=== PATIENT | female | born 1945 | race Caucasian/White ===

== ENCOUNTER 2024-03-07 10:21 | Inpatient (IN) | payer MEDICARE, OTHER ==
[~2024-03-07] VITALS: Ht 154.9 cm; Wt 66.8 kg
--- NOTE | 2024-03-07 11:34 | ED.PDOC ---
History of Present Illness HPI Comments 79F presents to the ER w/ prior Hx of DM which may associated to the c/c of UE. Pt reports on tripping over a block curb 1 week ago and was told to go to the ER so that they can check her DM level due from her having Sx on her left wrist tomorrow w/ Doctor Kira. SHx of cataract Sx xboth hands. Social Hx of quit tobacco use, occasional alcohol use, but denies substance use. Family Hx of DM. Denies chills, fever, N/V/D, SOB, CP or other associated symptom's, modifiers, or recent injuries or sick contact at this time. Chief Complaint: Upper Extremity Time Seen by MD: 11:15 Reviewed Notes: Nurses Notes, Medications, Allergies Allergies: Coded Allergies: Codeine (Verified Allergy, Unknown, 03/07/24) Erythromycin (Verified Allergy, Unknown, 03/07/24) Penicillins (Verified Allergy, Unknown, 03/07/24) Information Source: Patient Mode of Arrival: Ambulatory Severity: Moderate Timing: Days Duration: Since onset, Days Prehospital treatment: None Past Medical History PAST MEDICAL HISTORY: DM Surgical History (Other): cataract Sx on both hands DIESEL TECHNICIAN History: No Pertinent DIESEL TECHNICIAN History Family History Family History: Reviewed,noncontributory to illness, Family hx of DM Social History Smoker: Quit Greater Than 1 Year Alcohol: Occasionally Drugs: Denies Drug Use Lives In: Home Constitutional: reports: others (Scheduled Sx appointment tommorrow); denies: chills, diaphoresis, fatigue, fever, malaise, sweats, weakness EENTM: denies: blurred vision, double vision, ear bleeding, ear discharge, ear drainage, ear pain, ear ringing, eye pain, eye redness, hearing loss, mouth pain, mouth swelling, nasal discharge, nose bleeding, nose congestion, nose pain, photophobia, tearing, throat pain, throat swelling, voice changes, others Respiratory: denies: cough, hemoptysis, orthopnea, SOB at rest, shortness of breath, SOB with excertion, stridor, wheezing, others Cardiovascular: denies: chest pain, dizzy spells, diaphoresis, Dyspnea on exertion, edema, irregular heart beat, left arm pain, lightheadedness, palpitations, PND, syncope, others Gastrointestinal: denies: abdomen distended, abdominal pain, blood streaked bowels, constipated, diarrhea, dysphagia, difficulty swallowing, hematemesis, melena, nausea, poor appetite, poor fluid intake, rectal bleeding, rectal pain, vomiting, others Genitourinary: denies: abnormal vagina bleeding, burning, dyspareunia, dysuria, flank pain, frequency, hematuria, incontinence, pain, , vagina discharge, urgency, others Neurological: denies: dizziness, fainting, headache, left sided numbness, left sided weakness, numbness, paresthesia, pre-existing deficit, right sided numbness, right sided weakness, seizure, speech problems, tingling, tremors, weakness, others Musculoskeletal: denies: back pain, gout, joint pain, joint swelling, muscle pain, muscle stiffness, neck pain, others Integumetry: denies: bruises, change in color, change in hair/nails, dryness, laceration, lesions, lumps, rash, wounds, others Allergic/Immunocompromised: denies: Difficulty Healing, Frequent Infections, Hives, Itching, others Hematologic/Lymphatic: denies: anemia, blood clots, easy bleeding, easy bruising, swollen glands, others Endocrine: denies: excessive hunger, excessive sweating, excessive thirst, excessive urination, flushing, intolerance to cold, intolerance to heat, unexplained weight gain, unexplained weight loss, others Psychiatric: denies: anxiety, bipolar disorder, depression, hopeless, panic disorder, schizophrenia, sleepless, suicidal, others All Other Systems: Reviewed and Negative Physical Exam General Appearance: Mild Distress HEENT: Normal ENT Inspection, Pharynx Normal, TMs Normal Neck: Full Range of Motion, Non-Tender, Normal, Normal Inspection Respiratory: Chest Non-Tender, Lungs Clear, No Accessory Muscle Use, No Respiratory Distress, Normal Breath Sounds Cardiovascular: No Edema, No JVD, No Murmur, No Gallop, Normal Peripheral Pulses, Regular Rate/Rhythm Breast Exam: Deferred Gastrointestinal: No Organomegaly, Non Tender, No Pulsatile Mass, Normal Bowel Sounds, Soft Genitalia: Deferred Pelvic: Deferred Rectal: Deferred Extremities: No calf tenderness, Normal capillary refill, No pedal edema Musculoskeletal : Location: Left Extremity Location: Wrist Apperance: Tenderness: Moderate Neurologic: Alert, site identification specialist II-XII nml as Tested, No Motor Deficits, Normal Affect, Normal Mood, No Sensory Deficits Cerebellar Function: Normal Reflexes: Normal Skin: Dry, Normal Color, Warm Lymphatic: No Adenopathy Was a procedure done? Was a procedure done?: No Differential Dx Considerations may include: Fracture, strain, contusion X-Ray, Labs, Meds, VS Vital Signs Date Time Temp Pulse Resp B/P (MAP) Pulse Ox O2 Delivery O2 Flow Rate FiO2 03/07/24 10:44 98.7 98 16 195/83 (120) 96 Lab Test 03/07/24 11:30 Range/Units White Blood Count 5.4 4.4-10.8 10^3/uL Red Blood Count 5.04 4.0-5.20 10^6/uL Hemoglobin 13.7 12.2-16.2 g/dL Hematocrit 41.0 36.0-46.0 % Mean Corpuscular Volume 81.4 80.0-100.0 fL Mean Corpuscular Hemoglobin 27.1 L 28.0-32.0 pg Mean Corpuscular Hemoglobin Concent 33.3 32.0-36.0 g/dL Red Cell Distribution Width 13.9 11.8-14.3 % Platelet Count 219 140-450 10^3/uL Mean Platelet Volume 7.6 6.9-10.8 fL Neutrophils (%) (Auto) 61.1 37.0-80.0 % Lymphocytes (%) (Auto) 25.3 10.0-50.0 % Monocytes (%) (Auto) 8.3 0.0-12.0 % Eosinophils (%) (Auto) 3.3 0.0-7.0 % Basophils (%) (Auto) 2.0 0.0-2.0 % Neutrophils # (Auto) 3.3 1.6-8.6 10 ^3/uL Lymphocytes # (Auto) 1.4 0.4-5.4 10 ^3/uL Monocytes # (Auto) 0.4 0-1.3 10 ^3/uL Eosinophils # (Auto) 0.2 0-0.8 10 ^3/uL Basophils # (Auto) 0.1 0-0.2 10 ^3/uL Nucleated Red Blood Cells 0.3 % Prothrombin Time 11.4 9.3-11.8 sec Prothrombin Time INR 1.08 0.9-1.15 Activated Partial Thromboplast Time 28.4 24.5-34.5 SEC Sodium Level 141 136-145 mmol/L Potassium Level 3.9 3.5-5.1 mmol/L Chloride Level 104 98-107 mmol/L Carbon Dioxide Level 30 20-31 mmol/L Anion Gap 7 5-15 Blood Urea Nitrogen 19 9-23 mg/dL Creatinine 0.84 0.550-1.02 mg/dL Glomerular Filtration Rate Calc 72 >90 mL/min BUN/Creatinine Ratio 22.6 H 10.0-20.0 Serum Glucose 208 H 74-106 mg/dL Calcium Level 10.5 H 8.7-10.4 mg/dL Total Bilirubin 0.6 0.2-1.0 mg/dL Aspartate Amino Transferase (AST) 23 13-40 U/L Alanine Aminotransferase (ALT) 18 7-40 U/L Alkaline Phosphatase 100 46-116 U/L Total Protein 7.3 5.7-8.2 g/dL Albumin 4.5 3.2-4.8 g/dL The patient's CBC and chemistry panel are within normal limits except for hyperglycemia at 208 An IV Hep-Lock was established We consulted with the orthopedic surgeon The patient was being admitted at this time The diagnosis is left wrist fracture. We will manage the patient's pain with morphine and Zofran The patient was being admitted at this time. The patient will be having surgery tomorrow per the orthopedic surgeon Images Reviewed?: Images reviewed and evaluated by me Time of 1ST Reevaluation: 11:45 Reevaluation 1ST: Unchanged Patient Education/Counseling: Diagnosis, Treatment, Prognosis Family Education/Counseling: No Family Present Departure 1 Departure Time of Disposition: 14:10 Impression: Primary Impression: Left wrist fracture Qualified Codes: S62.102A - Fracture of unspecified carpal bone, left wrist, initial encounter for closed fracture Disposition: ADMITTED INPATIENT Admit to: Med Surg Condition: Fair Critical Care Note Critical Care Time?: No Stability Stability form required: No Heart Score Heart Score: Heart Score Response (Comments) Value History N/A 0 EKG N/A 0 Age N/A 0 Risk Factors N/A 0 Troponin N/A 0 Total 0 I personally scribed for JANET SAHNI MD ([email or web address]) on 03/07/24 at 11:34. Electronically submitted by Delbert Ortiz ([email or web address]). JANET SAHNI MD Mar 07, 2024 11:34
[2024-03-07 11:47] LABS: Basophils # (auto) 0.1 10 ^3/uL (0-0.2); Eosinophils # (auto) 0.2 10 ^3/uL (0-0.8); Eosinophils % (auto) 3.3 % (0.0-7.0); Hemoglobin 13.7 g/dL (12.2-16.2); Lymphocytes # (auto) 1.4 10 ^3/uL (0.4-5.4); Lymphocytes % (auto) 25.3 % (10.0-50.0); Mean Corpuscular Hemoglobin 27.1 pg (28.0-32.0); Mean Corpuscular Hgb Conc. 33.3 g/dL (32.0-36.0); Mean Corpuscular Volume 81.4 fL (80.0-100.0); Monocytes # (auto) 0.4 10 ^3/uL (0-1.3); Monocytes % (auto) 8.3 % (0.0-12.0); Neutrophils # (auto) 3.3 10 ^3/uL (1.6-8.6); Neutrophils % (auto) 61.1 % (37.0-80.0); Nucleated Red Blood Cells % 0.3 %; Platelet Count (auto) 219 10^3/uL (140-450); Red Blood Cells 5.04 10^6/uL (4.0-5.20); Red Cell Distribution Width 13.9 % (11.8-14.3); White Blood Cell 5.4 10^3/uL (4.4-10.8)
--- NOTE | 2024-03-07 11:58 | DVH ---
CLINICAL INFORMATION: 79 years old, Female; pre op. Distal radius fracture based on prior imaging. TECHNIQUE: Frontal and lateral chest radiographs were obtained. COMPARISON: None FINDINGS: Lungs: Hyperaeration of the lungs, may be seen with emphysematous changes. Lungs are otherwise clear. Cardiac: Heart size is within normal limits. Pulmonary vasculature: Unremarkable Mediastinum/gio: Moderate atherosclerotic calcification of the aortic arch. Bones: No evidence of acute osseous abnormality. Other: No other significant finding. IMPRESSION: 1. Hyperaeration of the lungs, may be seen with emphysematous changes. 2. Otherwise, no evidence of acute disease in the chest.
[2024-03-07 12:01] LABS: INR 1.08 (0.9-1.15); Partial Thromboplastin Time 28.4 SEC (24.5-34.5); Prothrombin Time 11.4 sec (9.3-11.8)
[2024-03-07 12:02] LABS: Alanine Aminotransferase 18 U/L (7-40); Albumin 4.5 g/dL (3.2-4.8); Alkaline Phosphatase 100 U/L (46-116); Anion Gap 7 (5-15); Aspartate Aminotransferase 23 U/L (13-40); BUN/Creatinine Ratio 22.6 (10.0-20.0); Bilirubin, Total 0.6 mg/dL (0.2-1.0); Blood Urea Nitrogen 19 mg/dL (9-23); Carbon Dioxide 30 mmol/L (20-31); Chloride 104 mmol/L (98-107); Potassium 3.9 mmol/L (3.5-5.1); Sodium 141 mmol/L (136-145); Total Protein 7.3 g/dL (5.7-8.2)
[2024-03-07 12:12] LABS: Calcium 10.5 mg/dL (8.7-10.4); Glucose 208 mg/dL (74-106)
[2024-03-07] MEDS ORDERED: DEXTROSE (50%) 50ML SYRG IV PRN ×2 (15:45→16:00)
[2024-03-07] MEDS ORDERED: SODIUM CHLORIDE 0.9% 1,000 ML IV SCH (15:45)
[2024-03-07] MEDS ORDERED: ACETAMINOPHEN 325 MG TAB PO PRN (15:45)
[2024-03-07] MEDS ORDERED: ONDANSETRON HCL 4 MG/2 ML VIAL IV PRN ×2 (15:45→16:00)
[2024-03-07] MEDS ORDERED: TEMAZEPAM 15 MG CAP PO PRN ×2 (15:45→16:00)
[2024-03-07] MEDS ORDERED: DOCUSATE SOD 100 MG CAP PO PRN ×2 (15:45→16:00)
[2024-03-07] MEDS ORDERED: LORazepam 0.5 MG TAB PO PRN ×2 (15:45→16:00)
[2024-03-07] MEDS ORDERED: MAALOX PLUS or MAALOX 30 ML PO PRN ×2 (15:45→16:00)
[2024-03-07] MEDS ORDERED: MORPHINE SULFATE INJ 2 MG/ml SYRG IV PRN ×2 (15:45→16:00)
--- NOTE | 2024-03-07 15:52 | DVHHP2 ---
History of Present Illness Reason for Visit: Wrist fracture History of Present Illness 79-year-old obese patient past medical history of diabetes comes to the ED after tripping and falling and having a mechanical fall a week ago patient has a history of diabetes patient has a plan for surgical repair of the left wrist with Orthopedics Endocrine: Diabetes Review of Systems Constitutional: Yes: Weakness; No: Fever, Chills, Sweats, Malaise, Other Eyes: No: Pain, Vision change, Conjunctivae inflammation, Eyelid inflammation, Other, Redness ENT: No: Ear pain, Ear discharge, Nose pain, Nose discharge, Nose congestion, Mouth pain, Mouth swelling, Throat pain, Throat swelling, Other Respiratory: No: Cough, Dry, Shortness of breath, SOB with excertion, Wheezing, Hemoptysis, Pleuritic Pain, Sputum, Wheezing, Other Cardiovascular: No: Chest Pain, Palpitations, Orthopnea, Paroxysmal Noc. Dyspnea, Edema, Lt Headedness, Other Gastrointestinal: No: Nausea, Vomiting, Abdominal Pain, Diarrhea, Constipation, Melena, Hematochezia, Other Genitourinary: No Dysuria, No Frequency, No Incontinence, No Hematuria, No Retention, No Other Musculoskeletal: arm pain, hand pain; No: other, neck pain, shoulder pain, back pain, leg pain, foot pain Skin: No: Rash, Lesions, Jaundice, Bruising, Other Neurological: No: Weakness, Numbness, Incoordination, Change in speech, Confusion, Seizures, Other Allergies: Coded Allergies: Codeine (Verified Allergy, Unknown, 03/07/24) Erythromycin (Verified Allergy, Unknown, 03/07/24) Penicillins (Verified Allergy, Unknown, 03/07/24) Exam Vital Signs Vital Signs Date Time Temp Pulse Resp B/P (MAP) Pulse Ox O2 Delivery O2 Flow Rate FiO2 03/07/24 10:44 98.7 98 16 195/83 (120) 96 General Appearance: Alert, Oriented X3, mild distress HEENT: Atraumatic, PERRLA Respiratory: Clear to auscultation Cardiovascular: Regular rate, Normal S1 Abdominal: Normal bowel sounds, Soft Extremities: No cyanosis, No edema Skin: No rashes, No breakdown Neuro: Normal gait, Normal speech Psych/Mental Status: Mood NL Labs/Xrays Labs Test 03/07/24 11:30 Range/Units White Blood Count 5.4 4.4-10.8 10^3/uL Red Blood Count 5.04 4.0-5.20 10^6/uL Hemoglobin 13.7 12.2-16.2 g/dL Hematocrit 41.0 36.0-46.0 % Mean Corpuscular Volume 81.4 80.0-100.0 fL Mean Corpuscular Hemoglobin 27.1 L 28.0-32.0 pg Mean Corpuscular Hemoglobin Concent 33.3 32.0-36.0 g/dL Red Cell Distribution Width 13.9 11.8-14.3 % Platelet Count 219 140-450 10^3/uL Mean Platelet Volume 7.6 6.9-10.8 fL Neutrophils (%) (Auto) 61.1 37.0-80.0 % Lymphocytes (%) (Auto) 25.3 10.0-50.0 % Monocytes (%) (Auto) 8.3 0.0-12.0 % Eosinophils (%) (Auto) 3.3 0.0-7.0 % Basophils (%) (Auto) 2.0 0.0-2.0 % Neutrophils # (Auto) 3.3 1.6-8.6 10 ^3/uL Lymphocytes # (Auto) 1.4 0.4-5.4 10 ^3/uL Monocytes # (Auto) 0.4 0-1.3 10 ^3/uL Eosinophils # (Auto) 0.2 0-0.8 10 ^3/uL Basophils # (Auto) 0.1 0-0.2 10 ^3/uL Nucleated Red Blood Cells 0.3 % Prothrombin Time 11.4 9.3-11.8 sec Prothrombin Time INR 1.08 0.9-1.15 Activated Partial Thromboplast Time 28.4 24.5-34.5 SEC Sodium Level 141 136-145 mmol/L Potassium Level 3.9 3.5-5.1 mmol/L Chloride Level 104 98-107 mmol/L Carbon Dioxide Level 30 20-31 mmol/L Anion Gap 7 5-15 Blood Urea Nitrogen 19 9-23 mg/dL Creatinine 0.84 0.550-1.02 mg/dL Glomerular Filtration Rate Calc 72 >90 mL/min BUN/Creatinine Ratio 22.6 H 10.0-20.0 Serum Glucose 208 H 74-106 mg/dL Calcium Level 10.5 H 8.7-10.4 mg/dL Total Bilirubin 0.6 0.2-1.0 mg/dL Aspartate Amino Transferase (AST) 23 13-40 U/L Alanine Aminotransferase (ALT) 18 7-40 U/L Alkaline Phosphatase 100 46-116 U/L Total Protein 7.3 5.7-8.2 g/dL Albumin 4.5 3.2-4.8 g/dL Assessment/Plan Assessment/Plan Admit to [facility] Left wrist fracture Patient being admitted and followed by Orthopedic surgery Planned for left wrist repair with ortho in the morning NPO after midnight Orthopedics following Plan discussed with: Patient My Orders Orders - BURKE MIRANDA MD Procedure Category Date Status Time Glucose Blood PHA 03/07/24 Logged (Accu-Chek Comfort 16:00 Insulin R (Human) PHA 03/07/24 Logged (Insulin R) 16:00 Dextrose 50% Syringe PHA 03/07/24 Logged 15:45 Admit ADMIT 03/07/24 Transmitted 15:34 Code Status CODE 03/07/24 Transmitted 15:34 Vital Signs [facility] 03/07/24 In Process 15:34 Review Orders With [facility] 03/07/24 In Process Adm.Md 15:34 Sodium Chloride 0.9% [facility] 03/07/24 Logged 15:45 Lorazepam Tablet [facility] 03/07/24 Logged (Ativan Tablet) 15:45 Alum & Mag PHA 03/07/24 Logged Hydrox-Simethicone 15:45 Docusate Sodium [facility] 03/07/24 Logged Capsule (Colace 15:45 Acetaminophen Tablet PHA 03/07/24 Logged (Tylenol Tablet) 15:45 Temazepam (Restoril) [facility] 03/07/24 Logged 15:45 Notify Md Of Changes [facility] 03/07/24 In Process From Base 15:34 Advance Directive [facility] 03/07/24 In Process 15:34 Basic Metabolic Panel LAB 03/08/24 Verified 04:00 Urinalysis LAB 03/07/24 Logged 15:34 Complete Blood Count LAB 03/08/24 Verified 04:00 Patient Condition ORDERS 03/07/24 Transmitted 15:34 Allergies [facility] 03/07/24 In Process 15:34 Ondansetron Hcl [facility] 03/07/24 Logged (Zofran) 15:45 Morphine Sulfate PHA 03/07/24 Logged Injection 15:45 Notify Of Changes [facility] 03/07/24 In Process From Base 15:34 Oxygen By Nasal RT 03/07/24 Transmitted Cannula 15:34 Problem List: (1) Left wrist fracture Date of Service: Mar 07, 2024 Billing Provider: BURKE MIRANDA MD Common Visit Codes: [id number] INP/OBS CARE (HIGH) BURKE MIRANDA MD Mar 07, 2024 15:52
[2024-03-07] MEDS ORDERED: ACCU-CHEK COMFORT CURVE STRIP VI SCH (16:00)
[2024-03-07] MEDS ORDERED: InsuLIN REG 1unit/0.01ml Soln (100units/ml) SC SCH (16:00)
[2024-03-07] MEDS: SODIUM CHLORIDE 0.9% 1,000 ML IV SCH (16:00)
[2024-03-07] MEDS: InsuLIN REG 1unit/0.01ml Soln (100units/ml) SC SCH (18:30)
[2024-03-07] MEDS: ACCU-CHEK COMFORT CURVE STRIP VI SCH (18:30)
[2024-03-07 21:00] VITALS: BP 170/84; PULSE 76; RESP 18; TEMP 98.1; O2SAT 91
[2024-03-07 21:36] LABS: Urine Bacteria FEW /hpf (None Seen); Urine Blood Negative /uL (Negative); Urine Clarity Clear (Clear); Urine Color Yellow (Yellow); Urine Hyaline Cast FEW /lpf (0 - 2); Urine Mucus FEW (None Seen); Urine Protein, UAD TRACE (Negative); Urine Specific Gravity 1.028 (1.001-1.035); Urine Squamous Epithelial Cell FEW /hpf (<5); Urine Urobilinogen 2 mg/dL (Negative); Urine WBC 9 /hpf (0 - 5); Urine pH 5.5 (5.0-9.0)
[2024-03-08 01:00] VITALS: BP 152/68; PULSE 74; RESP 17; O2SAT 90
[2024-03-08] MEDS: cloNIDine HCL 0.1 MG TAB PO ONE (04:45)
[2024-03-08 05:00] VITALS: BP 174/73; PULSE 74; RESP 18; TEMP 97.9; O2SAT 93
[2024-03-08 07:08] LABS: Calcium 10.1 mg/dL (8.7-10.4); Potassium 3.6 mmol/L (3.5-5.1); Sodium 144 mmol/L (136-145)
[2024-03-08 07:12] LABS: Basophils # (auto) 0.1 10 ^3/uL (0-0.2); Basophils % (auto) 1.8 % (0.0-2.0); Eosinophils # (auto) 0.2 10 ^3/uL (0-0.8); Hematocrit 38.3 % (36.0-46.0); Hemoglobin 13.2 g/dL (12.2-16.2); Lymphocytes # (auto) 1.4 10 ^3/uL (0.4-5.4); Mean Corpuscular Hemoglobin 27.9 pg (28.0-32.0); Mean Corpuscular Hgb Conc. 34.3 g/dL (32.0-36.0); Mean Corpuscular Volume 81.2 fL (80.0-100.0); Monocytes # (auto) 0.5 10 ^3/uL (0-1.3); Monocytes % (auto) 9.5 % (0.0-12.0); Neutrophils # (auto) 3.5 10 ^3/uL (1.6-8.6); Neutrophils % (auto) 61.7 % (37.0-80.0); Nucleated Red Blood Cells % 0.1 %; Platelet Count (auto) 220 10^3/uL (140-450); Red Blood Cells 4.72 10^6/uL (4.0-5.20); Red Cell Distribution Width 14.1 % (11.8-14.3); White Blood Cell 5.7 10^3/uL (4.4-10.8)
[2024-03-08 07:14] LABS: BUN/Creatinine Ratio 28.4 (10.0-20.0); Glucose 97 mg/dL (74-106)
[2024-03-08] MEDS: LIDOCAINE 1% HCL (LOCAL ANESTH.) INJ 20ML MDV ONE (07:21)
[2024-03-08] MEDS: BUPIVACAINE 0.5% P/F INJ 10 ML VIAL ONE (07:21)
--- NOTE | 2024-03-08 07:26 | DVHINCON2 ---
Date of service: Mar 07, 2024 Reason for Consultation Left comminuted distal radius fracture History of Present Illness 79 yo F with hx of uncontrolled DM sp fall 1 week ago and landed onto an outstretched left arm. Patient hgA1c above 10. Patient also has a broken left wrist rib. No numbness or tingling/ cp/sob/abd pain. Past Medical History DM Allergies: Coded Allergies: Codeine (Verified Allergy, Unknown, 03/07/24) Erythromycin (Verified Allergy, Unknown, 03/07/24) Penicillins (Verified Allergy, Unknown, 03/07/24) Current Medications Current Medications Medications (Trade) Dose Ordered Sig/Rob Route PRN Reason Start Time Stop Time Status Last Admin Diagnostic Test (Pha) (Accu-Chek Comfort Curve T) 1 strip IQ4HR 03/07/24 16:00 03/07/24 15:50 DC Insulin Human Regular (InsuLIN R) IQ4HR SC 03/07/24 16:00 03/07/24 15:50 DC Dextrose 50 ml UD PRN IV Blood Sugar LESS THAN 60 03/07/24 15:45 03/07/24 15:50 DC Sodium Chloride 1,000 ml @ 60 mls/hr [id number] IV 03/07/24 15:45 03/07/24 15:50 DC Lorazepam (Ativan Tablet) 0.5 mg Q6HP PRN PO ANXIETY 03/07/24 15:45 03/07/24 15:50 DC Al Hydrox/Mg Hydrox/Simethicone (Maalox Plus) 30 ml Q6HP PRN PO FOR STOMACH DISTRESS 03/07/24 15:45 03/07/24 15:50 DC Docusate Sodium (Colace Capsule) 100 mg BIDPRN PRN PO FOR CONSTIPATION 03/07/24 15:45 03/07/24 15:50 DC Acetaminophen (Tylenol Tablet) 650 mg Q6HP PRN PO PAIN SCALE 1-3 OR TEMP>100.4 03/07/24 15:45 03/07/24 15:50 DC Temazepam (Restoril) 15 mg QHSP PRN PO FOR INSOMNIA 03/07/24 15:45 03/07/24 15:50 DC Ondansetron HCl (Zofran) 4 mg Q4HP PRN IV NAUSEA / VOMITING 03/07/24 15:45 03/07/24 15:50 DC Morphine Sulfate 2 mg Q4HPRN PRN IV SEVERE PAIN (7-10 PAIN SCALE) 03/07/24 15:45 03/07/24 15:50 DC Insulin Human Regular (InsuLIN R) IQ4HR SC 03/07/24 16:00 03/08/24 00:00 Dextrose 50 ml UD PRN IV Blood Sugar LESS THAN 60 03/07/24 16:00 Ondansetron HCl (Zofran) 4 mg Q4HP PRN IV NAUSEA / VOMITING 03/07/24 16:00 Morphine Sulfate 2 mg Q4HPRN PRN IV SEVERE PAIN (7-10 PAIN SCALE) 03/07/24 16:00 Sodium Chloride 1,000 ml @ 60 mls/hr [id number] IV 03/07/24 16:00 03/07/24 16:00 Lorazepam (Ativan Tablet) 0.5 mg Q6HP PRN PO ANXIETY 03/07/24 16:00 Al Hydrox/Mg Hydrox/Simethicone (Maalox Plus) 30 ml Q6HP PRN PO FOR STOMACH DISTRESS 03/07/24 16:00 Docusate Sodium (Colace Capsule) 100 mg BIDPRN PRN PO FOR CONSTIPATION 03/07/24 16:00 Acetaminophen (Tylenol Tablet) 650 mg Q6HP PRN PO PAIN SCALE 1-3 OR TEMP>100.4 03/07/24 16:00 Temazepam (Restoril) 15 mg QHSP PRN PO FOR INSOMNIA 03/07/24 16:00 Diagnostic Test (Pha) (Accu-Chek Comfort Curve T) 1 strip IQ4HR 03/07/24 16:00 03/08/24 04:24 Review of Systems 10 point ROS is neg except per HPI Vital Signs Vital Signs Date Time Temp Pulse Resp B/P (MAP) Pulse Ox O2 Delivery O2 Flow Rate FiO2 03/08/24 05:00 97.9 74 18 174/73 (106) 93 97.9 03/07/24 17:45 Room Air Physical Exam NAD Aox3 VErbal wnwd LUE: splint in place +finger ext /flex silt fingers Labs/Diagnostic Data Labs Test 03/08/24 06:15 03/08/24 04:03 03/07/24 20:41 03/07/24 11:30 Range/Units POC Glucose 82 70-106 mg/dl Urine Color Yellow Yellow Urine Clarity Clear Clear Urine pH 5.5 5.0-9.0 Urine Specific [place] 1.028 1.001-1.035 Urine Protein Trace H Negative Urine Ketones Trace Negative Urine Blood Negative Negative /uL Urine Nitrite Negative Negative Urine Bilirubin Negative Negative Urine Urobilinogen 2 H Negative mg/dL Urine Leukocyte Esterase Trace Negative /uL Urine RBC 2 0 - 4 /hpf Urine WBC 9 0 - 5 /hpf Urine Squamous Epithelial Cells Few <5 /hpf Urine Bacteria Few H None Seen /hpf Urine Hyaline Casts Few 0 - 2 /lpf Urine Mucus Few None Seen Urine Glucose 3+ H Normal mg/dL Eosinophils (%) (Auto) 3.3 0.0-7.0 % Eosinophils # (Auto) 0.2 0-0.8 10 ^3/uL Basophils # (Auto) 0.1 0-0.2 10 ^3/uL Nucleated Red Blood Cells 0.3 % Prothrombin Time 11.4 9.3-11.8 sec Prothrombin Time INR 1.08 0.9-1.15 Activated Partial Thromboplast Time 28.4 24.5-34.5 SEC Total Bilirubin 0.6 0.2-1.0 mg/dL Aspartate Amino Transferase (AST) 23 13-40 U/L Alanine Aminotransferase (ALT) 18 7-40 U/L Alkaline Phosphatase 100 46-116 U/L Total Protein 7.3 5.7-8.2 g/dL Albumin 4.5 3.2-4.8 g/dL Plan/Recommendation 79 yo F with displaced left distal radius fracture 1. a long and thorough discussion held with patient regarding her condition. Risks benefits options and alternatives reviewed in depth. Risks include but not exclusive to bleeding infection nerve injury hardware failure nonunion chronic pain malunion need for further surgery blood clots cardiac and pulmonary complications amputation and . Patient understands the risks and wishes to proceed with surgical intervention. 2. Plan for open reduction internal fixation of left wrist fracture 3. NPO/IVF 4. pain control 5. strict DM control Plan discussed with: Patient TUSHAR ERVIN MD Mar 08, 2024 07:26
[2024-03-08 08:08] LABS: Chloride 108 mmol/L (98-107)
[2024-03-08 08:10] LABS: Blood Urea Nitrogen 23 mg/dL (9-23)
[2024-03-08] MEDS: SUCCINYLCHOLINE CHLORIDE 20 MG/ML 10ML VIAL IV ONE (08:25)
[2024-03-08] MEDS: LIDOCAINE 2% JELLY 11ml (GLYDO) ONE (08:25)
[2024-03-08 08:30] LABS: Anion Gap 8 (5-15); Carbon Dioxide 28 mmol/L (20-31)
[2024-03-08 09:23] VITALS: BP 108/60; PULSE 65; RESP 18; TEMP 97.4; O2SAT 95
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
[2024-03-08 12:55] LABS: Magnesium 2.2 mg/dL (1.6-2.6)
[2024-03-08 13:30] VITALS: BP 190/86; PULSE 77; RESP 16; TEMP 97.8; O2SAT 93
--- NOTE | 2024-03-08 13:40 | DVHPN2 ---
Progress Note Date Seen: Mar 08, 2024 Medical Necessity Reason Pt with a Central, PICC or Fol: No Subjective Patient reports: No new complaints Review of Systems: HEENT:Normal, CVS:Normal, RESPIRATORY:Normal, GI:Normal, :Normal, MSK:Normal, NEURO:Normal Objective vital signs Vital Sign Date Time Temp Pulse Resp B/P (MAP) Pulse Ox O2 Delivery O2 Flow Rate FiO2 03/08/24 09:23 97.4 65 18 108/60 (76) 95 97.4 03/07/24 17:45 Room Air Total Intake and Output 03/07/24 03/07/24 03/08/24 15:00 23:00 07:00 Intake Total 900 ml Balance 900 ml medications Current Medications Medications Dose Ordered Sig/Rob Route Start Time Stop Time Status Last Admin Dose Admin Insulin Human Regular IQ4HR SC 03/07/24 16:00 03/08/24 00:00 2 UNITS Dextrose 50 ml UD PRN IV 03/07/24 16:00 Ondansetron HCl 4 mg Q4HP PRN IV 03/07/24 16:00 Morphine Sulfate 2 mg Q4HPRN PRN IV 03/07/24 16:00 Sodium Chloride 1,000 ml @ 60 mls/hr [id number] IV 03/07/24 16:00 03/07/24 16:00 60 MLS/HR Lorazepam 0.5 mg Q6HP PRN PO 03/07/24 16:00 Al Hydrox/Mg Hydrox/Simethicone 30 ml Q6HP PRN PO 03/07/24 16:00 Docusate Sodium 100 mg BIDPRN PRN PO 03/07/24 16:00 Acetaminophen 650 mg Q6HP PRN PO 03/07/24 16:00 Temazepam 15 mg QHSP PRN PO 03/07/24 16:00 Diagnostic Test (Pha) 1 strip IQ4HR 03/07/24 16:00 03/08/24 11:45 1 STRIP Examination: GENERAL:Normal, HEENT:Normal, NECK:Normal, LUNGS:Normal, CVS:Normal, ABDOMEN:Normal, MSK:Normal, MSK:Abnormal (left wrist splint), SKIN:Normal, NEURO:Normal, :Normal laboratory and microbiology Laboratory Tests 03/08/24 06:15 Test 03/08/24 06:15 Range/Units Serum Glucose 97 74-106 mg/dL Problem List/Assessment/Plan Problem List/Assessment/Plan #1 left wrist fracture: needs surgery #2 dm: ssi #3 ? htn #4 left rib pain/fracture advance care planning- full code- time spent 19 mins Plan discussed with: Patient, Spouse Date of Service: Mar 08, 2024 Billing Provider: ANTONIA HANEY MD Common Visit Codes: [id number] INP/OBS CARE(HIGH) Secondary Visit Codes: [id number] CARE PLAN 30 MINUTES ANTONIA HANEY MD Mar 08, 2024 13:40
[2024-03-08] MEDS ORDERED: DEXTROSE (50%) 50ML SYRG IV PRN (13:45)
[2024-03-08 17:00] VITALS: BP 159/80; PULSE 84; RESP 16; TEMP 98.4; O2SAT 96
[2024-03-08] MEDS: LABETALOL HCL 20 MG/4 ML VL IV PRN (17:09)
--- NOTE | 2024-03-08 17:15 | DVHSR ---
APPROVED REPORT EXAM: Two-dimensional and M-mode echocardiogram with Doppler and color Doppler. Blood Pressure: 108/60 mmHg INDICATION CAD RISK FACTORS Height: 61, Weight: 151 DIMENSIONS LVDd (3.8-5.7cm)LA (2D)3.5 (1.9-4.0cm)Aortic Root3.7 (2.0-3.7cm) LVDs (2.5-4.0cm)LA (MM) (1.9-4.0cm)Aortic Cusp Exc1.7 (1.5-2.0cm) EF (%) 44.0 (55-70%)Rt. Atrium4.3 (1.9-4.0cm)Asc. Aorta cm Mitral Valve MitralMitral Stenosis E wave0.60m/sMV Mean GR.mmHg A wave1.07m/sMV Peak GR.150mmHg E/A ratio0.62D MVAcm2 DECEL [id number] 1/2 [id number] IVRTmsDop MVA2.09cm2 Aortic Valve Aortic ValveAortic Stenosis V10.85m/Alee Mean GR.2mmHg V20.95m/Alee Peak GR.4mmHg AI P 1/2 [id number] Pulmonic Valve V20.88m/s Tricuspid Valve TR Velocity2.77m/s [id number] Other Information Technically limited study due to patient laying flat on her back during exam. Conclusion Moderately reduced left ventricular systolic function estimated ejection fraction 40%. There is ante rior anteroapical and inferior apical wall akinesia. There is a grade 1 diastolic dysfunction. Normal right ventricular size and dimension. Normal right ventricular systolic function. Moderately increased right ventricular systolic [id number] mm of mercury Normal biatrial size and dimension. Normal aortic valve structure and function. Normal mitral valve structure and function. Normal tricuspid valve structure and function. The pulmonary valve is grossly normal. No pericardial effusion.
[2024-03-08] MEDS: ACCU-CHEK COMFORT CURVE STRIP VI SCH (18:00)
[2024-03-08] MEDS: InsuLIN REG 1unit/0.01ml Soln (100units/ml) SC SCH (18:00)
[2024-03-08 20:00] VITALS: PULSE 74; RESP 18; O2SAT 90
[2024-03-09] VITALS (11 sets, daily range): BP systolic 105–180; BP diastolic 54–74; PULSE 55–74; RESP 16–22; TEMP 97.6–99.4; O2SAT 89–100
[2024-03-09 07:01] LABS: INR 1.08 (0.9-1.15); Prothrombin Time 11.4 sec (9.3-11.8)
[2024-03-09 07:03] LABS: Alanine Aminotransferase 14 U/L (7-40); Albumin 3.7 g/dL (3.2-4.8); Alkaline Phosphatase 85 U/L (46-116); Anion Gap 7 (5-15); Aspartate Aminotransferase 27 U/L (13-40); BUN/Creatinine Ratio 17.9 (10.0-20.0); Bilirubin, Total 0.5 mg/dL (0.2-1.0); Blood Urea Nitrogen 15 mg/dL (9-23); Calcium 9.5 mg/dL (8.7-10.4); Carbon Dioxide 25 mmol/L (20-31); Potassium 4.5 mmol/L (3.5-5.1); Sodium 139 mmol/L (136-145); Total Protein 6.2 g/dL (5.7-8.2)
[2024-03-09 07:04] LABS: Basophils # (auto) 0.1 10 ^3/uL (0-0.2); Basophils % (auto) 1.8 % (0.0-2.0); Eosinophils # (auto) 0.2 10 ^3/uL (0-0.8); Eosinophils % (auto) 4.2 % (0.0-7.0); Hematocrit 36.5 % (36.0-46.0); Hemoglobin 12.3 g/dL (12.2-16.2); Lymphocytes # (auto) 1.2 10 ^3/uL (0.4-5.4); Lymphocytes % (auto) 22.6 % (10.0-50.0); Mean Corpuscular Hemoglobin 27.5 pg (28.0-32.0); Mean Corpuscular Hgb Conc. 33.6 g/dL (32.0-36.0); Mean Corpuscular Volume 82.1 fL (80.0-100.0); Monocytes # (auto) 0.5 10 ^3/uL (0-1.3); Monocytes % (auto) 9.9 % (0.0-12.0); Neutrophils # (auto) 3.4 10 ^3/uL (1.6-8.6); Neutrophils % (auto) 61.5 % (37.0-80.0); Nucleated Red Blood Cells % 0.1 %; Platelet Count (auto) 192 10^3/uL (140-450); Red Blood Cells 4.45 10^6/uL (4.0-5.20); Red Cell Distribution Width 14.1 % (11.8-14.3); White Blood Cell 5.5 10^3/uL (4.4-10.8)
[2024-03-09 07:05] LABS: Chloride 107 mmol/L (98-107); Glucose 160 mg/dL (74-106)
[2024-03-09] MEDS: VERAPAMIL 2.5MG/ML INJ 2ML VIAL IV ONE (09:08)
[2024-03-09] MEDS: ANGIOMAX 250 MG VIAL IV ONE (09:08)
[2024-03-09] MEDS: HEPARIN SODIUM (PORCINE) 5000 UNITS/ML 1ML VIAL ONE (09:08)
[2024-03-09] MEDS: fentaNYL CITRATE 100 MCG/2 ML VL ONE (09:08)
[2024-03-09] MEDS: MIDAZOLAM HCL 2MG/2ML 2ml VIAL (1mg/ml) ONE (09:09)
[2024-03-09] MEDS: SODIUM CHL 0.9% 0 ML ONE (09:09)
[2024-03-09] MEDS: NITROGLYCERIN 50MG/250ML 250 ML IV ONE (09:09)
[2024-03-09] MEDS: LIDOCAINE 2%HCL (LOCAL ANESTH.) INJ 20ML MDV ONE (09:09)
--- NOTE | 2024-03-09 10:34 | DVHOP2 ---
Operative Report -Cardiology Report Details Date: 03/09/24 Preop Diagnosis: Preop cardiac assessment, shows severe ECG changes in keeping with the possible underlying ischemia. Postop Diagnosis: Coronary angiography revealed three-vessel disease involving all territories with chronic total occlusion of the right coronary artery with a collateral from the left system, mid left anterior descending artery stenosis at 80% with a positive FFR of 0.69, subtotally occluded 1st diagonal branch critically diseased 2nd diagonal branch as well as 1st obtuse marginal branch. Given diffuse nature of the disease of the patient has coronary artery bypass graft surgery would be the best option however patient at this point in time is asymptomatic. And she has wrist fracture, we will recommend proceeding with a open reduction internal fixation before considering revascularization option. Patient understands and the underlying risk but she is asymptomatic and functional. Surgeon: Effie Lopez MD Anesthesiologist: Conscious sedation using25 mcg of fentanyl as well as a mg IV midazolam. Patient was monitored for total of35 minutes under direct supervision of the primary hoist worker with the attending nurses no obvious complications were seen Anesthesia: Local Consent: The patient was informed of the risks and benefits of the procedure. These i nclude but are not limited to complications of anesthesia, postoperative infection, incomplete relief of symptoms, recurrence of symptoms, damage to blood vessels, nerves and tendons, deep venous thrombosis, pulmonary embolism and possible need for repeat surgery in the future. Indications for Surgery: This is a 79-year-old female was recently diagnosed of diabetes about a week ago with no other known medical history presented to the ED after sustaining a fall on an outstretched hand. Patient denied any cardiac symptoms prior to the fall such as chest pain, palpitation, dizziness or loss of consciousness. Patient denied any shortness of breath associated with exertion. Of note, She does have a remote history of smoking, but she has stopped smoking about 25 years ago.Patient saw her primary care physician about a week ago after about a decade of no seen a primary care physician. Was doing this visit the patient was diagnosed diabetes with a hemoglobin A1c level of 10. Patient has never had an echo or a stress test done. EKG revealed very significant ST segment depression with T-wave inversion across anterolateral wall was well as inferior leads. Patient does not do high-level exercise to determine whether she is symptomatic or not. After discussed with the patient options of proceeding to surgery, versus further evaluation to rule out significant ischemic heart disease. Patient would like to note if there is any underlying ischemia hence coronary angiogram was ordered. Name of Procedure Performed 1. Left heart catheterization with left ventricular end-diastolic pressure measurement. 2. Selective right and left coronary angiography utilizing right transradial approach. 3. Fractional flow reserve measurement to the mid LAD lesion. 4. Conscious sedation using25 mcg of fentanyl as well as a mg IV midazolam Procedure Details Procedure Details: Procedure note and vascular access: After informed consent was obtained, risks, benefits, complications, alternatives were discussed in details with the patient who agrees to have the procedure done. At the beginning of the procedure, the right wrist and right coronary artery were prepped and draped in the regular sterile fashion. Patient received conscious sedation using25 mcg of fentanyl as well as a mg of midazolam. Then a total of2 cc of 1% xylocaine was given to the right wrist area before a six [place] sheath was placed using modified Seldinger technique without difficulty. A cocktail of 2.5 mg of verapamil as well as 100 mcg of nitroglycerin were given intra-arterial to prevent vasospasm. A tiger five [place] catheter as well as a J-tip [employer] wire were used to engage the left and right coronary system. The patient received 3000 of heparin upon crossing of the aortic arch. Findings were as follows: 1. Left heart catheterization with left ventricular end-diastolic pressure measurement: With the help of a tiger five [place] catheter as well as a J-tip wire we were able to cross the aortic valve and measured left ventricular end-diastolic pressure which was7 mm of mercury. There was no significant gradient across the aortic valve on the pullback. 2. Selective right and left coronary angiography utilizing right transradial approach: 1. The right coronary artery comes off the right coronary cusp it is a large dom inant system it has complete total occlusion of the proximal to mid segment. The mid to distal part reconstitutes via collateral from the left anterior descending artery. 2. The left main comes off the left coronary cusp it has no significant atherosclerotic plaquing, it bifurcates distally into a large left anterior descending artery and small to medium-sized left circumflex vessel. 3. The left anterior descending artery it is a large vessel with transapical course, it gives rise to two diagonal branches, the 1st diagonal branch has subtotal occlusion, however, it is a small caliber vessel not amenable for intervention, the 2nd diagonal branch has a critical long tubular lesion at 90% there is also small in caliber. After the 2nd diagonal branch there is a critical left anterior descending artery lesion at 80% we confirmed the severity of the stenosis by measuring fractional flow reserve using catheterization works and this came back positive at 0.69. 4. The left circumflex artery small to medium in caliber, it gives rise to 1st obtuse marginal branch which is subtotally occluded with a long lesion, it is a small caliber vessels again, the remaining part of the left circumflex artery is free of any significant disease. 3. Fractional flow reserve measurement using catheterization works: Using catheterization workstation we were able to interrogate the mid LAD lesion was hemodynamically significant stenosis with the FFR measured at 0.69. Impression and plan: 1. Diffuse three-vessel disease as outlined above including the proximal right coronary artery, the mid left anterior descending artery, subtotal occlusion of the 1st and 2nd diagonal branch as well as the 1st obtuse marginal branch. 2. Normal left ventricular end-diastolic pressure measurement. 3. There is a grade 3 collateral from the left anterior descending artery to the right coronary artery. 4. Given that the patient is asymptomatic at this point in time, patient could proceed with the general surgery that she needs for her wrist fracture, however she has moderate risk for having major cardiovascular event. 5. After surgery is done, patient will be considered for either coronary artery bypass grafting versus PCI to the left anterior descending artery. 6. In the meantime patient would need to be optimized medically with a baby aspirin, in addition to high-dose statins, and goal-directed therapy if ejection fraction is reduced based on her echo. Condition Good Dominance Dominance: Right Disposition EFFIE LOPEZ MD Mar 09, 2024 10:34
--- NOTE | 2024-03-09 12:32 | DVHPN2 ---
Progress Note Date Seen: Mar 09, 2024 Medical Necessity Reason Pt with a Central, PICC or Fol: No Subjective Patient reports: No new complaints Review of Systems: HEENT:Normal, CVS:Normal, RESPIRATORY:Normal, GI:Normal, :Normal, MSK:Normal, NEURO:Normal Objective vital signs Vital Sign Date Time Temp Pulse Resp B/P (MAP) Pulse Ox O2 Delivery O2 Flow Rate FiO2 03/09/24 10:59 60 21 111/66 (81) 100 03/09/24 09:00 99.4 99.4 03/09/24 08:00 Room Air* 0 21 medications Current Medications Medications Dose Ordered Sig/Rob Route Start Time Stop Time Status Last Admin Dose Admin Dextrose 50 ml UD PRN IV 03/07/24 16:00 Ondansetron HCl 4 mg Q4HP PRN IV 03/07/24 16:00 Morphine Sulfate 2 mg Q4HPRN PRN IV 03/07/24 16:00 Sodium Chloride 1,000 ml @ 60 mls/hr [id number] IV 03/07/24 16:00 03/08/24 08:40 60 MLS/HR Lorazepam 0.5 mg Q6HP PRN PO 03/07/24 16:00 Al Hydrox/Mg Hydrox/Simethicone 30 ml Q6HP PRN PO 03/07/24 16:00 Docusate Sodium 100 mg BIDPRN PRN PO 03/07/24 16:00 Acetaminophen 650 mg Q6HP PRN PO 03/07/24 16:00 Temazepam 15 mg QHSP PRN PO 03/07/24 16:00 Diagnostic Test (Pha) 1 strip Q6HR 03/08/24 18:00 03/09/24 11:29 1 STRIP Insulin Human Regular Q6HR SC 03/08/24 18:00 03/09/24 11:32 2 UNITS Dextrose 50 ml UD PRN IV 03/08/24 13:45 Labetalol HCl 10 mg Q4HP PRN IV 03/08/24 13:45 03/09/24 08:34 10 MG Examination: GENERAL:Normal, HEENT:Normal, NECK:Normal, LUNGS:Normal, CVS:Normal, ABDOMEN:Normal, MSK:Normal, MSK:Abnormal (left arm splint), SKIN:Normal, NEURO:Normal, :Normal laboratory and microbiology Laboratory Tests 03/09/24 05:40 Test 03/09/24 05:40 Range/Units Serum Glucose 160 H 74-106 mg/dL Problem List/Assessment/Plan Problem List/Assessment/Plan #1 left wrist fracture: needs surgery, dw dr Melgar #2 dm: ssi #3 ? htn #4 left rib pain/fracture #5 cad s/p angio: dw cardiology, will proceed with surgery advance care planning- full code- time spent 19 mins Plan discussed with: Patient, Spouse My Orders My Orders Orders - ANTONIA HANEY MD Procedure Category Date Status Time Glucose Blood PHA 03/08/24 In Process (Accu-Chek Comfort 18:00 Insulin R (Human) PHA 03/08/24 In Process (Insulin R) 18:00 Dextrose 50% Syringe PHA 03/08/24 In Process 13:45 Labetalol Hcl PHA 03/08/24 In Process (Labetalol Hcl) 13:45 Date of Service: Mar 09, 2024 Billing Provider: ANTONIA HANEY MD Common Visit Codes: [id number] INP/OBS CARE(HIGH) ANTONIA HANEY MD Mar 09, 2024 12:32
[2024-03-09] MEDS: ACETAMINOPHEN 325 MG TAB PO PRN (20:42)
[2024-03-10] VITALS (7 sets, daily range): BP systolic 150–177; BP diastolic 71–97; PULSE 16–75; RESP 16–77; TEMP 97.7–97.8; O2SAT 93–96
--- NOTE | 2024-03-10 08:01 | DVHPN2 ---
Progress Note Date Seen: Mar 10, 2024 Medical Necessity Reason Pt with a Central, PICC or Fol: No Subjective Patient reports: No new complaints Objective vital signs Vital Sign Date Time Temp Pulse Resp B/P (MAP) Pulse Ox O2 Delivery O2 Flow Rate FiO2 03/10/24 05:47 72 173/83 03/10/24 05:00 97.8 18 93 97.8 03/09/24 20:00 Room Air* 0 21 Total Intake and Output 03/09/24 03/09/24 03/10/24 15:00 23:00 07:00 Intake Total 600 ml 400 ml Balance 600 ml 400 ml medications Current Medications Medications Dose Ordered Sig/Rob Route Start Time Stop Time Status Last Admin Dose Admin Dextrose 50 ml UD PRN IV 03/07/24 16:00 Ondansetron HCl 4 mg Q4HP PRN IV 03/07/24 16:00 Morphine Sulfate 2 mg Q4HPRN PRN IV 03/07/24 16:00 Sodium Chloride 1,000 ml @ 60 mls/hr [id number] IV 03/07/24 16:00 03/08/24 08:40 60 MLS/HR Lorazepam 0.5 mg Q6HP PRN PO 03/07/24 16:00 Al Hydrox/Mg Hydrox/Simethicone 30 ml Q6HP PRN PO 03/07/24 16:00 Docusate Sodium 100 mg BIDPRN PRN PO 03/07/24 16:00 Acetaminophen 650 mg Q6HP PRN PO 03/07/24 16:00 03/09/24 20:42 650 MG Temazepam 15 mg QHSP PRN PO 03/07/24 16:00 Diagnostic Test (Pha) 1 strip Q6HR 03/08/24 18:00 03/10/24 05:57 1 STRIP Insulin Human Regular Q6HR SC 03/08/24 18:00 03/10/24 05:59 2 UNITS Dextrose 50 ml UD PRN IV 03/08/24 13:45 Labetalol HCl 10 mg Q4HP PRN IV 03/08/24 13:45 03/10/24 05:47 10 MG laboratory and microbiology Laboratory Tests 03/09/24 05:40 Test 03/09/24 05:40 Range/Units Serum Glucose 160 H 74-106 mg/dL Problem List/Assessment/Plan Problem List/Assessment/Plan 1. Lengthy discussion held with the patient at the bedside this morning informing her of cath findings and how that affects her candidacy for surgery. Patient is aware that her current cardiac risk to undergo general anesthesia is too high and that Dr. Melgar is recommending conservative management. Patient is disappointed but agrees that benefits of surgery do not outweigh the risks and she verbalized understanding of the plan of care. 2. continue with splint 3. NWB LUE 4. clear for discharge from orthopedics standpoint 5. can follow up outpatient for continued management of the present condition. Plan discussed with: Patient Date of Service: Mar 10, 2024 Billing Provider: TUSHAR MEGLAR MD Common Visit Codes: [id number] INP/OBS CARE(MOD) GEORGETTE HAMM NP Mar 10, 2024 08:01
[2024-03-10 08:58] LABS: Alanine Aminotransferase 12 U/L (7-40); Albumin 4.1 g/dL (3.2-4.8); Alkaline Phosphatase 99 U/L (46-116); Anion Gap 5 (5-15); Aspartate Aminotransferase 17 U/L (13-40); BUN/Creatinine Ratio 24.4 (10.0-20.0); Blood Urea Nitrogen 19 mg/dL (9-23); Calcium 9.9 mg/dL (8.7-10.4); Carbon Dioxide 28 mmol/L (20-31); Sodium 142 mmol/L (136-145)
[2024-03-10 08:59] LABS: Bilirubin, Total 0.6 mg/dL (0.2-1.0); Total Protein 6.7 g/dL (5.7-8.2)
[2024-03-10 09:07] LABS: Chloride 109 mmol/L (98-107); Glucose 160 mg/dL (74-106)
--- NOTE | 2024-03-10 16:02 | DVHDS2 ---
Discharge Summary Date of Admission Mar 07, 2024 at 15:34 Date of Discharge: Mar 10, 2024 Labs/Diagnostic Data: Laboratory Results Test 03/10/24 11:38 03/10/24 08:23 03/09/24 05:40 03/08/24 06:15 POC Glucose 212 mg/dl (70-106) Sodium Level 142 mmol/L (136-145) Potassium Level 4.0 mmol/L (3.5-5.1) Chloride Level 109 mmol/L (98-107) Carbon Dioxide Level 28 mmol/L (20-31) Anion Gap 5 (5-15) Blood Urea Nitrogen 19 mg/dL (9-23) Creatinine 0.78 mg/dL (0.550-1.02) Glomerular Filtration Rate Calc 78 mL/min (>90) BUN/Creatinine Ratio 24.4 (10.0-20.0) Serum Glucose 160 mg/dL (74-106) Calcium Level 9.9 mg/dL (8.7-10.4) Total Bilirubin 0.6 mg/dL (0.2-1.0) Aspartate Amino Transferase (AST) 17 U/L (13-40) Alanine Aminotransferase (ALT) 12 U/L (7-40) Alkaline Phosphatase 99 U/L (46-116) Total Protein 6.7 g/dL (5.7-8.2) Albumin 4.1 g/dL (3.2-4.8) White Blood Count 5.5 10^3/uL (4.4-10.8) Red Blood Count 4.45 10^6/uL (4.0-5.20) Hemoglobin 12.3 g/dL (12.2-16.2) Hematocrit 36.5 % (36.0-46.0) Mean Corpuscular Volume 82.1 fL (80.0-100.0) Mean Corpuscular Hemoglobin 27.5 pg (28.0-32.0) Mean Corpuscular Hemoglobin Concent 33.6 g/dL (32.0-36.0) Red Cell Distribution Width 14.1 % (11.8-14.3) Platelet Count 192 10^3/uL (140-450) Mean Platelet Volume 8.0 fL (6.9-10.8) Neutrophils (%) (Auto) 61.5 % (37.0-80.0) Lymphocytes (%) (Auto) 22.6 % (10.0-50.0) Monocytes (%) (Auto) 9.9 % (0.0-12.0) Eosinophils (%) (Auto) 4.2 % (0.0-7.0) Basophils (%) (Auto) 1.8 % (0.0-2.0) Neutrophils # (Auto) 3.4 10 ^3/uL (1.6-8.6) Lymphocytes # (Auto) 1.2 10 ^3/uL (0.4-5.4) Monocytes # (Auto) 0.5 10 ^3/uL (0-1.3) Eosinophils # (Auto) 0.2 10 ^3/uL (0-0.8) Basophils # (Auto) 0.1 10 ^3/uL (0-0.2) Nucleated Red Blood Cells 0.1 % Prothrombin Time 11.4 sec (9.3-11.8) Prothrombin Time INR 1.08 (0.9-1.15) Activated Partial Thromboplast Time 24.0 SEC (24.5-34.5) Hemoglobin A1c 10.5 % A1C (<5.7) Magnesium Level 2.2 mg/dL (1.6-2.6) B-Type Natriuretic Peptide 78.29 pg/mL (0-100) Triglycerides Level 148 mg/dL (< 150) Cholesterol Level 184 mg/dL (< 200) LDL Cholesterol 124 mg/dL (< 100) HDL Cholesterol 40 mg/dL (40-59) Thyroid Stimulating Hormone (TSH) 6.18 uIU/mL (0.55-4.78) Test 03/07/24 20:41 Urine Color Yellow (Yellow) Urine Clarity Clear (Clear) Urine pH 5.5 (5.0-9.0) Urine Specific [place] 1.028 (1.001-1.035) Urine Protein Trace (Negative) Urine Ketones Trace (Negative) Urine Blood Negative /uL (Negative) Urine Nitrite Negative (Negative) Urine Bilirubin Negative (Negative) Urine Urobilinogen 2 mg/dL (Negative) Urine Leukocyte Esterase Trace /uL (Negative) Urine RBC 2 /hpf (0 - 4) Urine WBC 9 /hpf (0 - 5) Urine Squamous Epithelial Cells Few /hpf (<5) Urine Bacteria Few /hpf (None Seen) Urine Hyaline Casts Few /lpf (0 - 2) Urine Mucus Few (None Seen) Urine Glucose 3+ mg/dL (Normal) Other Laboratory Tests 03/10/24 08:23 03/09/24 05:40 Brief Hx & Hospital Course: see dictated note Condition at Discharge: Good Final Diagnosis/Problems List cad Discharge Disposition: Acute Care Facility Discharge Instruct/Medications Diet: Consistent carbohydrate, Cardiac 2g Na,low cholest Activity: No Restrictions, As Tolerated Follow Up/Referral: fu with pcp/ortho Medications: per may Discharge Statement: "Patient was advised to return to the ER or call 911 if any headaches, dizziness, shortness of breath, chest pain, abdominal pain, bleeding, fevers, or worsening of medical condition. Patient was counseled about treatment plan, medications, possible side effects, patientverbalized understanding. All questions were answered to the best of my ability. This discharge took greater then 30 minutes in planning, reviewing documentation, counseling the patient, and discussing with other team members." ASSESSMENT ASSESSMENT Assessment cad Date of Service: Mar 10, 2024 Billing Provider: ANTONIA HANEY MD Common Visit Codes: 13480-XUS/OBS DISCH DAY >30min ANTONIA HANEY MD Mar 10, 2024 16:02
--- NOTE | 2024-03-10 16:25 | DVHDS ---
DATE OF DISCHARGE: 03/10/2024 TRANSFER SUMMARY DATE OF TRANSFER: 03/10/2024 HISTORY OF PRESENT ILLNESS: The patient is a 79-year-old lady who was admitted after she had a fall with pain in the left wrist. The patient has history of recent diagnosed diabetes mellitus. HOSPITAL COURSE: The patient was seen in Cardiology consult by Dr. Lopez. The patient had echocardiogram done that showed ejection fraction of 40%. The patient underwent coronary angiography and was found to have triple vessel coronary artery disease. The patient was seen in orthopedic consult by Dr. Melgar. The patient was recommended to have conservative treatment for the wrist fracture. She will now be transferred to a higher level of care for open heart surgery. Hemoglobin A1c was 10.5. FINAL DIAGNOSES: Therefore: * Coronary artery disease with triple vessel disease. * Left wrist fracture, status post fall. * Diabetes mellitus. * Left rib pain/fracture. * Hypertension. Time spent in discharge planning and review of plan with the patient and nursing and family and business system consultant was 41 minutes. MD STEFFANY Angel/FIGUEROA TID: [id number] RECEIPT: [id number]
[2024-03-10] MEDS: ASPirin 81 mg TAB PO ONE (18:17)
--- NOTE | 2024-03-10 19:34 | DVHPN2 ---
Consult Progress Note Date Seen: Mar 10, 2024 Subjective Patient reports: No new complaints Other Systems: Patient is seen and examined today. She has no new complaints. She was initially scheduled to have the fracture of her left wrist; However given the findings from the cardiac cath, the surgeon recommended conservative management. fixation today however given the findings from the catheter cardiac catheterization in the the surgeon orthopedic surgeon decided to not proceed however recommend that the patient decided to that for C at a higher level of care where she can have. Objective vital signs Vital Sign Date Time Temp Pulse Resp B/P (MAP) Pulse Ox O2 Delivery O2 Flow Rate FiO2 03/10/24 17:00 97.7 16 77 150/97 (114) 96 97.7 03/10/24 08:00 Room Air* 0 21 Total Intake and Output 03/09/24 03/09/24 03/10/24 15:00 23:00 07:00 Intake Total 600 ml 400 ml Balance 600 ml 400 ml medications Current Medications Medications Dose Ordered Sig/Rob Route Start Time Stop Time Status Last Admin Dose Admin Ondansetron HCl 4 mg Q4HP PRN IV 03/07/24 16:00 Morphine Sulfate 2 mg Q4HPRN PRN IV 03/07/24 16:00 Lorazepam 0.5 mg Q6HP PRN PO 03/07/24 16:00 Al Hydrox/Mg Hydrox/Simethicone 30 ml Q6HP PRN PO 03/07/24 16:00 Docusate Sodium 100 mg BIDPRN PRN PO 03/07/24 16:00 Acetaminophen 650 mg Q6HP PRN PO 03/07/24 16:00 03/09/24 20:42 650 MG Temazepam 15 mg QHSP PRN PO 03/07/24 16:00 Diagnostic Test (Pha) 1 strip Q6HR 03/08/24 18:00 03/10/24 18:21 1 STRIP Insulin Human Regular Q6HR SC 03/08/24 18:00 03/10/24 18:22 2 UNITS Dextrose 50 ml UD PRN IV 03/08/24 13:45 Labetalol HCl 10 mg Q4HP PRN IV 03/08/24 13:45 03/10/24 09:55 10 MG Aspirin 81 mg DAILY PO 03/11/24 10:00 Atorvastatin Calcium 40 mg HS PO 03/10/24 22:00 Metoprolol Tartrate 12.5 mg BID PO 03/10/24 22:00 Examination: GENERAL:Normal, HEENT:Normal, NECK:Normal, CVS:Normal, ABDOMEN:Normal, SKIN:Normal, NEURO:Normal laboratory and microbiology Laboratory Tests 03/10/24 08:23 03/09/24 05:40 Test 03/10/24 08:23 Range/Units Serum Glucose 160 H 74-106 mg/dL Problem List/Assessment/Plan Problem List/Assessment/Plan Multiple Coronary artery diseases --> Cardiac cath: Diffuse three-vessel disease as outlined above including the proximal right coronary artery, the mid left anterior descending artery, subtotal occlusion of the 1st and 2nd diagonal branch as well as the 1st obtuse marginal branch --> Recommend: Patient is asymptomatic at this point in time, patient could proceed with the general surgery that she needs for her wrist fracture, however she has moderate risk for having major cardiovascular event. After surgery is done, patient will be considered for either coronary artery bypass grafting versus PCI to the left anterior descending artery. HFrEF --> NYHA class II --> Initiate GDMT as tolerated Hypertensive urgency Newly diagnosed diabetes mellitus type 2 with a hemoglobin level of a A1c:10 Pertinent family history Remote history of tobacco use Obesity with a BMI of 28.6 in a diabetic patient PLAN Blood pressure control as tolerated Continue diabetic protocol, maintain tight glycemic control For obesity: Encouraged the lifestyle and tight glycemic control Can consider higher level of care for CABG vs PCI and fracture repair in the same facility Thank you for allowing us to participate in the care of this patient. Please call if you have any questions or concerns. Plan discussed with: Patient, Spouse Date of Service: Mar 10, 2024 Billing Provider: PETRONA DE LEON MD Cardiology Common Codes: 79109-[id number] CARE-EACH +30MIN OLIVIA RAMIREZ RESIDENT Mar 10, 2024 19:34
[2024-03-10] MEDS: METOPROLOL TARTRATE 25 MG TAB PO SCH (22:00)
[2024-03-10] MEDS: ATORVASTATIN 20 MG TAB PO SCH (22:00)
[2024-03-11] MEDS ORDERED: ASPirin 81 mg TAB PO SCH (10:00)
--- NOTE | 2024-03-16 11:14 | ECG ---
[facility] Test Date: 2024-03-08 Test Time: 06:57:32 Pat Name: MATT PETERSON Department: Room: 0291T A Gender: F Director [employer]: [id number] : 1945 Requested By: PETRONA LOPEZ Order Number: [id number] Reading MD: Petrona Lopez Measurements Intervals [place] Rate: 65 P: 74 TN: 148 QRS: 35 QRSD: 93 T: 221 QT: 457 QTc: 476 Interpretive Statements Sinus rhythm Repol abnrm, severe global ischemia (LM/MVD) Electronically Signed On 03-16-2024 13:32:34 PST by Petrona Lopez Please click the below link to view image of tracing.
--- NOTE | 2024-03-16 11:14 | ECG ---
[facility] Test Date: 2024-03-08 Test Time: 07:00:28 Pat Name: MATT PETERSON Department: Room: 0291T A Gender: F Counseling Services Director: [id number] : 1945 Requested By: PETRONA LOPEZ Order Number: [id number] Reading MD: Petrona Lopez Measurements Intervals [place] Rate: 66 P: 76 [place]: 149 QRS: 37 QRSD: 95 T: 231 QT: 455 QTc: 477 Interpretive Statements Sinus rhythm Repol abnrm, severe global ischemia (LM/MVD) Electronically Signed On 03-16-2024 13:32:34 PST by Petrona Lopez Please click the below link to view image of tracing.
--- NOTE | 2024-03-24 12:26 | ECG ---
[facility] Test Date: 2024-03-08 Test Time: 08:43:45 Pat Name: MATT PETERSON Department: Room: 0291T A Gender: F Program Advocate: KEARA : 1945 Requested By: PETRONA DE LEON Order Number: [id number] Reading MD: Erika Franklin Measurements Intervals [place] Rate: 70 P: 67 W[place]: 146 QRS: 17 QRSD: 92 T: 228 QT: 442 QTc: 477 Interpretive Statements Sinus rhythm with occasional premature ventricular complexes ST & T wave abnormality, consider inferolateral ischemia LVH by voltage Prolonged QT Electronically Signed On 03-24-2024 18:00:21 PST by Erika Franklin Please click the below link to view image of tracing.
== END 2024-03-11 01:11 | disposition short-term general hospital (02) | DRG 287 ==
LOC: ER 10:21 → OVERFLOW 15:34 → ER 15:37 → WEST WING 18:00 → TELE-WESTW 03-08 15:59
PROVIDERS: ADMIT Hospitalist; ATTEND Internal Medicine
PROC: 4A023N7 Measurement of Cardiac Sampling and Pressure, Left Heart, Percutaneous Approach (ICD-10-PCS; principal; 2024-03-09)
PROC: B211YZZ Fluoroscopy of Multiple Coronary Arteries using Other Contrast (ICD-10-PCS; 2024-03-09)
PROC: 4A033BC Measurement of Arterial Pressure, Coronary, Percutaneous Approach (ICD-10-PCS; 2024-03-09)
DX: I25.10 Atherosclerotic heart disease of native coronary artery without angina pectoris (principal); S52.592A Other fractures of lower end of left radius, initial encounter for closed fracture; S62.102A Fracture of unspecified carpal bone, left wrist, initial encounter for closed fracture; E11.36 Type 2 diabetes mellitus with diabetic cataract; I16.0 Hypertensive urgency; E66.9 Obesity, unspecified; Z68.28 Body mass index [BMI] 28.0-28.9, adult; Z88.0 Allergy status to penicillin; Z88.1 Allergy status to other antibiotic agents; Z88.5 Allergy status to narcotic agent; Z83.3 Family history of diabetes mellitus; Z87.891 Personal history of nicotine dependence; W01.0XXA Fall on same level from slipping, tripping and stumbling without subsequent striking against object, initial encounter; Y93.89 Activity, other specified; Y92.89 Other specified places as the place of occurrence of the external cause; Y99.8 Other external cause status; I10 Essential (primary) hypertension
CPT/HCPCS: 36415; 71046; 80048; 80053; 80061; 81001; 82962; 83036; 83735; 83880; 84443; 85025; 85610; 85730; 93306; 93458; 93571; 99152; G0378; J0330; J1815; J2003; J2250; J3490